=== PATIENT | female | born 1945 | race Caucasian/White ===

== ENCOUNTER 2022-01-27 16:15 | Emergency (ER) | payer MEDICARE, BC ==
[2022-01-27 17:00] LABS: #Eosinphils 0.1 10x3/uL (0.0-0.5); #Monocytes 0.6 10x3/uL (0.0-1.1); #Neutrophils 4.3 10x3/uL (1.5-8.4); %Basophils 0.6 % (0.0-2.0); %Eosinophils 1.7 % (0.0-6.0); %Lymphocytes 25.8 % (18.0-47.0); %Neutrophils 62.8 % (40.0-75.0); Hemoglobin 13.2 g/dL (12.0-15.5); Mean Corpuscular Hemoglobin 26.9 pg (27.0-33.0); Mean Corpuscular Volume 81.6 fl (81.6-98.3); Mean Platelet Volume 9.3 fl (7.4-10.4); Platelet Count 240 10x3/uL (150-450); RBC Distribution Width 13.4 % (11.5-14.5); White Blood Cell (WBC) Count 6.9 10x3/uL (3.5-10.5)
[2022-01-27 17:11] LABS: INR-International Normal Ratio 1.8; PTT 33.8 sec (22.0-33.0); Prothrombin Time 18.8 sec (9.5-12.1)
[2022-01-27 17:16] LABS: Bilirubin Neg (Negative); Blood, Urine Negative (Negative); Clarity Clear (Clear); Glucose, Urine (Dipstick) Normal (Negative); Ketone, Urine Negative (Negative); Leukocyte Negative (Negative); Nitrite Negative (Negative); Protein, Urine (Dipstick) Negative (Neg-Trace); Specific Gravity, Urine 1.005 (1.005-1.030); Urobilinogen Normal mg/dL (Less than 2); pH, Urine 6.5 (5.0-9.0)
[2022-01-27 17:20] LABS: ALT (SGPT) 21 U/L (8-55); AST (SGOT) 27 U/L (5-34); Albumin 4.3 g/dL (3.4-4.8); Alkaline Phosphatase 87 U/L (40-110); Anion Gap 14 mmol/L (10-20); BUN (Urea Nitrogen) 18 mg/dL (9.8-20.1); Bilirubin, Total 0.7 mg/dL (0.2-1.2); Calc. Creatinine Clearance 0 mL/min (70-130); Calcium 9.2 mg/dL (7.8-10.44); Carbon Dioxide 26 mmol/L (23-31); Chloride 103 mmol/L (98-107); Estimated GFR 60; Globulin 3.1 g/dL (2.4-3.5); Glucose 100 mg/dL (83-110); Lipase 7 U/L (8-78); Potassium 3.9 mmol/L (3.5-5.1); Protein, Total 7.4 g/dL (5.8-8.1); Sodium 139 mmol/L (136-145)
[2022-01-27] MEDS ORDERED: Meclizine HCl 25 MG TAB ONE (17:58)
== END 2022-01-27 19:06 | disposition home or self-care (01) ==
LOC: CSHERS 16:15
DX: J32.9 Chronic sinusitis, unspecified (principal); R42 Dizziness and giddiness; I10 Essential (primary) hypertension
CPT/HCPCS: 71045; 80053; 81003; 83690; 83880; 84484; 85025; 85610; 85730; 93005

== ENCOUNTER 2022-08-19 16:24 | Emergency (ER) | payer MEDICARE, BC ==
[2022-08-19 18:42] LABS: Bilirubin Neg (Negative); Blood, Urine 10 (Negative); Clarity Clear (Clear); Glucose, Urine (Dipstick) Normal (Negative); Ketone, Urine Negative (Negative); Leukocyte Negative (Negative); Nitrite Negative (Negative); Protein, Urine (Dipstick) Negative (Neg-Trace); Specific Gravity, Urine 1.015 (1.005-1.030); Urobilinogen Normal mg/dL (Less than 2)
[2022-08-19 18:53] LABS: RBC/HPF 0-3 HPF (0-3); Squamous Epithelial 0-3 HPF (0-3); WBC/HPF None Seen HPF (0-3)
[2022-08-19 18:54] LABS: Bacteria/HPF Rare-Few HPF (None Seen)
== END 2022-08-19 19:36 | disposition home or self-care (01) ==
LOC: CSHERS 16:24
DX: M54.12 Radiculopathy, cervical region (principal); M54.16 Radiculopathy, lumbar region; I10 Essential (primary) hypertension
CPT/HCPCS: 81003; 81015; 93005

== ENCOUNTER 2022-11-30 07:51 | Emergency (ER) | payer MEDICARE, BC ==
[2022-11-30] MEDS ORDERED: Ipratropium/Albuterol 3 ML NEB ONE (08:46)
[2022-11-30] MEDS ORDERED: Benzonatate 100 MG CAP ONE (09:16)
[2022-11-30] MEDS ORDERED: guaiFENesin/Codeine Phosphate 100 mg/10 mg 5 ml UD Cup ONE (09:58)
== END 2022-11-30 10:55 | disposition home or self-care (01) ==
LOC: CSHERS 07:51
DX: J18.9 Pneumonia, unspecified organism (principal); I10 Essential (primary) hypertension
CPT/HCPCS: 71045; 94640; J7620

== ENCOUNTER 2025-05-03 10:28 | Outpatient (CLI) | payer MEDICARE, BC | END 2025-05-03 10:29 | disposition home or self-care (01) | LOC: CSHMRI 10:28 | PROVIDERS: ATTEND Family Medicine | DX: M47.22 Other spondylosis with radiculopathy, cervical region (principal); M48.02 Spinal stenosis, cervical region; M50.10 Cervical disc disorder with radiculopathy, unspecified cervical region | CPT/HCPCS: 72141 ==